=== PATIENT | male | born 1930 | race Caucasian/White ===

== ENCOUNTER 2016-04-16 07:48 | Day surgery (SDC) | payer OTHER, MEDICARE ==
[2016-04-15 13:13] VITALS: BMI 33.9
[2016-04-16] MEDS ORDERED: ETOMIDATE 20 MG/10 ML AMPUL IVPUSH ONE (09:02)
[2016-04-16] MEDS ORDERED: PROPOFOL 20 ML ONE ×3 (09:03→09:54)
[2016-04-16 10:18] VITALS: TEMP 98.2
[2016-04-16 11:12] VITALS: BP 149/64; PULSE 67
--- NOTE | 2016-04-19 12:36 | PATH ---
Surgical Pathology Report Patient Name: SVETLANA SOTELO [facility]. Rec. #: [id number] /Age/Gender: 1930 (Age: 86) / M Account: [id number] Location: [facility] Taken: 04/16/2016 Received: 04/16/2016 Reported: 04/19/2016 Physicians: Trinidad Hopper M.D. Specimen(s) Received BX DISTAL TRANSVERSE COLON POLYP Clinical History Occult bleeding, anemia, family history of colon cancer, colon screening GERD, gastritis, duodenitis, colon diverticula, colon polyp Final Diagnosis COLON, DISTAL TRANSVERSE, POLYP, BIOPSY: TUBULAR ADENOMA. Electronically Signed Marco Antonio Harrison M.D. Gross Description Received in formalin, labeled "biopsy distal transverse colon polyp" are 2 quiroz, irregular portions of soft tissue measuring 0.2 and 0.3 cm in greatest dimension. The specimens are submitted in toto in one cassette. 04/16/201604/16/2016
== END 2016-04-16 11:37 | disposition home or self-care (01) ==
LOC: JASU-ENDO 07:48
PROVIDERS: ATTEND Internal Medicine Gastroenterology
PROC: 0DJ08ZZ Inspection of Upper Intestinal Tract, Via Natural or Artificial Opening Endoscopic (ICD-10-PCS; 2016-04-16)
PROC: 0DBL8ZX Excision of Transverse Colon, Via Natural or Artificial Opening Endoscopic, Diagnostic (ICD-10-PCS; principal; 2016-04-16 09:00)
DX: Z12.11 Encounter for screening for malignant neoplasm of colon (principal); K92.1 Melena; D50.9 Iron deficiency anemia, unspecified; D12.3 Benign neoplasm of transverse colon; K57.30 Diverticulosis of large intestine without perforation or abscess without bleeding; K63.89 Other specified diseases of intestine; K21.9 Gastro-esophageal reflux disease without esophagitis; K44.9 Diaphragmatic hernia without obstruction or gangrene; K25.9 Gastric ulcer, unspecified as acute or chronic, without hemorrhage or perforation; K29.70 Gastritis, unspecified, without bleeding; K29.80 Duodenitis without bleeding
CPT/HCPCS: 36415; 87338; 88305-TC

== ENCOUNTER 2018-04-15 14:49 | Inpatient (IN) | payer OTHER, MEDICARE ==
--- NOTE | 2018-04-15 15:00 | PDOC ---
History of Present Illness - General Chief Complaint: Injury Stated Complaint: LEFT HIP PAIN Time Seen by Provider: 04/15/18 15:00 - History of Present Illness Initial Comments: 88 year old male with PH of CHF, Afib (on Coumadin, pacemaker in place), HTN, and BPH presenting with left leg pain with a non healing lesion for the past week. Patient states that the cut his leg on a plant pot while in [place] and bandaged it. He also admits that he has been slightly more SOB for the past week and he has had slightly worsening bilateral leg swelling as well. He recently returned from [place] one week prior and worsening bilateral leg swelling and was told by his PCP to increased his Lasix by one dose so he has been taking 60 mg instead of 40 mg. There seems to be have been some confusion by the patient. He has His tetanus is uptodate and he denies fevers, chills, spreading erythema, nausea, vomiting, or diarrhea. 04/15/18 15:09 Past History - Past Medical History Allergies/Adverse Reactions: Allergies Allergy/AdvReac Type Severity Reaction Status Date / Time No Known Allergies Allergy Verified 04/15/18 14:52 Home Medications: Ambulatory Orders Furosemide [Lasix] 20 mg PO Q2D 04/15/16 Furosemide [Lasix] 40 mg PO Q2D 04/15/16 Losartan Potassium [Cozaar] 100 mg PO DAILY 04/15/16 Metoprolol Succinate [Toprol Xl] 75 mg PO DAILY 04/15/16 Tamsulosin HCl [Flomax] 0.4 mg PO DAILY 04/15/16 Warfarin Sodium 2 mg PO ASDIR 04/15/16 Warfarin Sodium 3 mg PO ASDIR 04/15/16 Amlodipine Besylate 5 mg PO DAILY 04/15/18 Finasteride [Proscar] 5 mg PO DAILY 04/15/18 Nitrofurantoin Macrocrystal [Nitrofurantoin] 25 mg PO ASDIR 04/15/18 Anemia: No Asthma: No Cancer: Yes (FACIAL SKIN CA EXCISION) Cardiac Disorders: (A FIB, SICK SINUS SYNDROME) CVA: No COPD: No CHF: No Dementia: No Diabetes: No GI Disorders: Yes (DIVERTICULOSIS, H.PYLORI, GASTRITIS, HIATAL HERNIA WITH GERD) Disorders: No HTN: Yes Hypercholesterolemia: No Liver Disease: No Seizures: No Thyroid Disease: No - Surgical History Abdominal Surgery: No Appendectomy: Yes Cardiac Surgery: No Cholecystectomy: No Lung Surgery: No Neurologic Surgery: No Orthopedic Surgery: Yes (LEFT HIP REPLACEMENT, RIGHT WRIST PINNING) - Suicide/Smoking/Psychosocial Hx Smoking History: Never smoked Hx Alcohol Use: Yes (SOCIALLY) Drug/Substance Use Hx: No Substance Use Type: None Hx Substance Use Treatment: No Review of Systems - Review of Systems Constitutional: No: Chills, Diaphoresis, Fever HEENTM: No: Eye Pain, Blurred Vision, Tearing Respiratory: Yes: Shortness of Breath, SOB with Exertion. No: Cough, SOB at Rest, Wheezing, Productive cough Cardiac (ROS): Yes: Edema. No: Chest Pain, Irregular Heart Rate, Lightheadedness ABD/GI: No: Constipated, Diarrhea, Nausea, Vomiting : No: Burning, Dysuria, Discharge Integumentary: No: Bruising, Erythema Neurological: No: Numbness, Paresthesia, Pre-Existing Deficit Psychiatric: No: Anxiety, Depression Endocrine: No: Intolerance to Cold, Intolerance to Heat Hematologic/Lymphatic: Yes: Easy Bleeding. No: Anemia, Blood Clots *Physical Exam - Physical Exam General Appearance: Yes: Nourished, Appropriately Dressed. No: Apparent Distress HEENT: positive: EOMI, WINTER, Normal ENT Inspection, Normal Voice Neck: positive: Trachea midline, Normal Thyroid, Supple. negative: Tender, Rigid Respiratory/Chest: positive: Lungs Clear, Normal Breath Sounds. negative: Chest Tender, Respiratory Distress Cardiovascular: positive: Regular Rhythm, Regular Rate Gastrointestinal/Abdominal: positive: Normal Bowel Sounds, Flat, Soft. negative : Tender Lymphatic: negative: Adenopathy, Tenderness Musculoskeletal: negative: Normal Inspection (left lower extremity 3 cm clean superfical laceratin with overlying devitalized skin. Light serous drainage from the wound. 1 cm laceration oin the medial aspect of the left lower extremity as well without drainage.), Decreased Range of Motion Extremity: positive: Normal Capillary Refill, Swelling. negative: Normal Inspection (bilateral 3+ pitting edema) Integumentary: positive: Normal Color, Dry, Warm, Swelling Neurologic: positive: Fully Oriented, Alert, Normal Mood/Affect, Normal Response , Motor Strength 5/5 ED Treatment Course - LABORATORY CBC & Chemistry Diagram: 04/15/18 15:21 04/15/18 15:21 Medical Decision Making - Medical Decision Making 88 year old male on Coumadin and with CHF presenting with worsening SOB and non- healing left lower extremity wound. He hasn't had his INR checked in three weeks. His labs and exam were not concerning for infection but his PT/INR were seen as supratherapeutic. His CXR did not demonstrate overt fluid overload but he did have 3+ pitting edema bilateral despite increasing his Lasix. His BNP was elevated to 1600 a few days ago. Given his supratherapeutic INR and Acute heart failure we will admit him to telemetry for further dieresis (40 IV Lasix given here). Patient had 1350 mL of urine and subsequently signed out to admitting hospitalist. 04/15/18 17:51 *DC/Admit/Observation/Transfer Diagnosis at time of Disposition: Acute congestive heart failure Qualifiers: Heart failure type: unspecified Qualified Code(s): I50.9 - Heart failure, unspecified - Discharge Dispostion Condition at time of disposition: Stable Decision to Admit order: Yes - Referrals - Patient Instructions - Post Discharge Activity
[2018-04-15 15:27] LABS: BASO % 0.5 % (0-2.0); HEMATOCRIT 35.2 % (35.4-49); HEMOGLOBIN 11.7 GM/dl (11.7-16.9); LYMPH % 8.9 % (8-40); MCH 31.5 pg (25.7-33.7); MCHC 33.2 g/dl (32.0-35.9); MEAN CELL VOLUME 94.8 fl (80-96); MEAN PLT VOLUME 7.2 fl (7.5-11.1); MONO % 8.9 % (3.8-10.2); NEUT % 80.7 % (42.8-82.8); PLATELET COUNT 424 K/MM3 (134-434); RBC 3.72 M/mm3 (4.00-5.60); RDW 13.1 % (11.9-15.9); WHITE BLOOD COUNT 8.8 K/mm3 (4.0-10.8)
[2018-04-15 15:30] LABS: PROTHROMBIN TIME (PATIENT) 68.9 SEC (10.2-13.0)
[2018-04-15 15:34] LABS: INR 6.38 (0.82-1.09)
[2018-04-15 15:41] LABS: ALBUMIN 2.8 g/dl (3.4-5.0); ALK PHOS 67 U/L (45-117); ANION GAP 7 MMOL/L (8-16); BILIRUBIN,TOTAL 1.5 mg/dl (0.2-1); BLOOD UREA NITROGEN 19 mg/dl (7-18); CHLORIDE 102 mmol/L (98-107); CO2 26 mmol/L (21-32); CREATININE 1.2 mg/dl (0.55-1.3); GLUCOSE,RANDOM 98 mg/dl (74-106); POTASSIUM 4.1 mmol/L (3.5-5.1); SGOT/AST 22 U/L (15-37); SGPT/ALT 26 U/L (13-61); SODIUM 135 mmol/L (136-145); TOT PROT 5.8 g/dl (6.4-8.2)
[2018-04-15] MEDS ORDERED: FUROSEMIDE 40 MG/4 ML INJECTABLE VIAL IVPUSH ONE (16:02)
[2018-04-15] MEDS ORDERED: FUROSEMIDE 40 MG/4 ML INJECTABLE VIAL ONE (16:39)
--- NOTE | 2018-04-15 16:43 | PDOC ---
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 Pt with small abrasion to L anterior hunter from recent trip to [place]- serous drainage, no purulent drainage, no surrounding erythema. States he saw Dr. Wilson and was told to take extra lasix -he took 20mg extra x 2 days. States today - pain to L quad and L hip with ROM. b/l LE swelling. No calf cramping. States also barron and sob that has not improved with increased lasix dose. Pt denies cp. Pt laying flat on the stretcher, speaking in full sentences. - Physicial Exam PE: 04/15/18 16:41 Gen: aaox3, nad heart: +s1s2 reg, pacer L chest wall lungs: cta b/l abd:soft, nt/nd +bs ext: 4+pitting edema below the knee b/l, small wound/abrasion/skin tear to L anterior hunter with serous drainage drainage, no surrounding erythema, no warmth , no ttp, no purulent drainage, no crepitus - Medical Decision Making 04/15/18 16:38 I, Dr. Samantha Eckert, DO, attest that this document has been prepared under my direction and personally reviewed by me in its entirety. I further attest, that it accurately reflects all work, treatment, procedures and medical decision -making performed by me. 04/15/18 16:43 a/p: 88yo male with sob, barron, LE swelling -hx of heart failure -has been taking extra lasix at home without relief -will obtain duplex ultrasound -will obtain cxr, ekg -labs -will check INR -will monitor and reassess 04/15/18 16:44 pt with mild vascular congestion on cxr dvt study negative INR 6.8 - no bleeding, hold coumadin will give iv lasix pmd dr. wilson - microblog sent to [facility] for obs for heart failure 04/15/18 17:[address] Alejandra who accepts pt to service consult placed to cardiology - Dr. Wilson 04/15/18 17:24 trop negative Heart Score/ECG Review - ECG Intrepretation Comment:: 04/15/18 16:44 paced at 76
[2018-04-15] MEDS ORDERED: ACETAMINOPHEN INJECTION 100 ML IVPB ONE (17:32)
[2018-04-15] MEDS ORDERED: ACETAMINOPHEN 1000 MG/100 ML VIAL (NON FORMULARY) IVPB ONE (17:59)
[2018-04-15 19:00] VITALS: BMI 30.7
--- NOTE | 2018-04-15 20:05 | CONSULT ---
Consult Consult Specialty:: Cardiology (Dr. Noonan) Referred by:: Medicine Reason for Consultation:: CHF - History of Present Illness Chief Complaint: Edema History of Present Illness: 88 year old male Patient of Dr. Noonan CHF, Afib (on Coumadin, Biotronik pacemaker) HTN Now presenting with left leg pain with a non healing lesion for the past week after trauma to leg while in [place]. Was in [place] 2 weeks ago and developed food poisoning and since then he has declined from a functional capacity. Has noted increased edema and dyspnea with exertion. Upon his return he was instructed to double his dose of Lasix to 80mg daily but only took 60mg He has no prior CBAG/PCI or TN His dry weight is about 150# In ED: pt with mild vascular congestion on cxr LE dvt study negative INR 6.8 - no bleeding BNP >2000 Given iv lasix with UOP Admitted to Dr. Noonan for CHF - History Source History Provided By: Patient, Family Member Limitations to Obtaining History: No Limitations - Past Medical History Cardio/Vascular: Yes: HTN, Other (PPM) - Alcohol/Substance Use Hx Alcohol Use: Yes (SOCIALLY) - Smoking History Smoking history: Never smoked Have you smoked in the past 12 months: No Home Medications - Allergies Allergies/Adverse Reactions: Allergies Allergy/AdvReac Type Severity Reaction Status Date / Time No Known Allergies Allergy Verified 04/15/18 14:52 - Home Medications Home Medications: Ambulatory Orders Furosemide [Lasix] 40 mg PO DAILY 04/15/16 Losartan Potassium [Cozaar] 100 mg PO DAILY 04/15/16 Metoprolol Succinate [Toprol Xl] 75 mg PO DAILY 04/15/16 Tamsulosin HCl [Flomax] 0.4 mg PO DAILY 04/15/16 Warfarin Sodium 2 mg PO ASDIR 04/15/16 Warfarin Sodium 3 mg PO ASDIR 04/15/16 Amlodipine Besylate 5 mg PO HS 04/15/18 Finasteride [Proscar] 5 mg PO DAILY 04/15/18 Nitrofurantoin Macrocrystal [Nitrofurantoin] 25 mg PO ASDIR 04/15/18 Family Disease History - Family Disease History Family History: Unremarkable Review of Systems - Review of Systems Constitutional: reports: Other (Food poisoning 2 weels ago) Eyes: reports: No Symptoms HENT: reports: No Symptoms Neck: reports: No Symptoms Cardiovascular: reports: Edema, Shortness of Breath Respiratory: reports: SOB on Exertion Gastrointestinal: reports: Abdominal Pain, Diarrhea Genitourinary: reports: No Symptoms Integumentary: reports: Wound (Left leg) Neurological: reports: No Symptoms Physical Exam Vital Signs: Vital Signs Temperature 97.7 F 04/15/18 18:43 Pulse Rate 71 04/15/18 18:43 Respiratory Rate 20 04/15/18 18:43 Blood Pressure 132/57 L 04/15/18 18:43 O2 Sat by Pulse Oximetry (%) 96 04/15/18 17:58 Constitutional: Yes: Well Nourished, No Distress Eyes: Yes: WNL HENT: Yes: WNL Neck: Yes: WNL Cardiovascular: Yes: WNL, Regular Rate and Rhythm (Faint S1 and S2.) Respiratory: Yes: CTA Bilaterally Gastrointestinal: Yes: Normal Bowel Sounds Musculoskeletal: Yes: WNL Extremities: Yes: WNL Edema: Yes Edema: LLE: 2+, RLE: 2+ Labs: CBC, BMP 04/15/18 15:21 04/15/18 15:21 Imaging - Results Chest X-ray: Image Reviewed (midl PVC with PPM in left pectoral region) X-ray: Report Reviewed EKG: Image Reviewed (ECG done on 04/15/2018 at 16:36 showed Afib with V-pacing) Other: Report Reviewed (Echo 11/2016 Preserved LV size anf function RV dilation with mild PH Mod to severe MR Nuclear Stress: 11/2016 Persantine showing fixed apical defect. Preserved LV function.) Assessment/Plan 88 yo male with persistent AF on warfarin, and HTN now admitted with CHF in the setting of recent trip to [place] complicated by food poisoning. 1) CHF -Has normal JVP and clear lungs but with pitting LE edema -Elevated BNP (>2000) -Echo in 2017 with Diastolic dysfunction and preserved LVEF -No dietary indiscretions and takes his medications regularly -I suspect the recent food poisoning tipped him into CHF -Will increase lasix 40mg IV BID -Follow BUN/Creat -Will get echo tomorrow 2) Afib -Well rate controlled on metoprolol -On coumadin but with elevated INR 3) Elevated INR -Likely related to #1 -No active bleeding Will continue to hold coumadin 4) HTN -Well controlled on Losartan, metoprolol and Amlodipine
[2018-04-15] MEDS ORDERED: metoPROLOL SUCCINATE 25 MG TAB.SR.24H (FP) PO SCH (20:30)
[2018-04-15] MEDS ORDERED: amLODIPine BESYLATE 5 MG TABLET (FP) PO SCH (20:30)
--- NOTE | 2018-04-15 21:09 | HP ---
CHIEF COMPLAINT: SOB, LLE pain PCP: HISTORY OF PRESENT ILLNESS: This is a 88 y/o man with a past medical history of CHF, Afib (on Coumadin, pacemaker in place), HTN, BPH. Who presents to the ED with left leg pain with a non healing lesion for the past week. Patient states that he cut his leg on a plant pot while in [place] and bandaged it. He reports increased SOB for the past week and slightly worsening bilateral leg swelling. He recently returned from [place] one week ago, and with the worsening bilateral leg swelling and was told by his PCP to increase his Lasix by one dose so he has been taking 60 mg instead of 40 mg. Patient reports being UTD with tetanus. Patient denies fevers , chills, dizziness, ROJAS, CP, palpitations, AP, N/V/D, dysuria. Patient denies parasthesias to LLE, increased erythema or tracking. ER course was notable for: (1) Duplex of Lower Extremity- neg DVT (2) Chest Xray- no infiltrate or effusion (3) BNP > 2000 (4) INR 6.38 Recent Travel: [place] PAST MEDICAL HISTORY: See HPI PAST SURGICAL HISTORY: PPM Social History: Smoking: Never Alcohol: Occasional Drugs: None Retired Physician, Independent Family History: Father: 80's from an accident Mother: Feliz Lopez, age 89 Allergies No Known Allergies Allergy (Verified 04/15/18 14:52) HOME MEDICATIONS: Home Medications Medication Instructions Recorded Furosemide [Lasix] 20 mg PO Q2D 04/15/16 Furosemide [Lasix] 40 mg PO Q2D 04/15/16 Losartan Potassium [Cozaar] 100 mg PO DAILY 04/15/16 Metoprolol Succinate [Toprol Xl] 75 mg PO DAILY 04/15/16 Tamsulosin HCl [Flomax] 0.4 mg PO DAILY 04/15/16 Warfarin Sodium 2 mg PO ASDIR 04/15/16 Warfarin Sodium 3 mg PO ASDIR 04/15/16 Amlodipine Besylate 5 mg PO DAILY 04/15/18 Finasteride [Proscar] 5 mg PO DAILY 04/15/18 Nitrofurantoin Macrocrystal 25 mg PO ASDIR 04/15/18 [Nitrofurantoin] REVIEW OF SYSTEMS CONSTITUTIONAL: Absent: fever, chills, diaphoresis, generalized weakness, malaise, loss of appetite, weight change HEENT: Absent: rhinorrhea, nasal congestion, throat pain, throat swelling, difficulty swallowing, mouth swelling, ear pain, eye pain, visual changes CARDIOVASCULAR: peripheral edema Absent: chest pain, syncope, palpitations, irregular heart rate, lightheadedness RESPIRATORY: cough, shortness of breath, dyspnea with exertion Absent: orthopnea, wheezing, stridor, hemoptysis GASTROINTESTINAL: Absent: abdominal pain, abdominal distension, nausea, vomiting, diarrhea, constipation, melena, hematochezia GENITOURINARY: Absent: dysuria, frequency, urgency, hesitancy, hematuria, flank pain, genital pain MUSCULOSKELETAL: arthralgia Absent: myalgia, joint swelling, back pain, neck pain SKIN: scab to LLE Absent: rash, itching, pallor HEMATOLOGIC/IMMUNOLOGIC: Absent: easy bleeding, easy bruising, lymphadenopathy, frequent infections ENDOCRINE: Absent: unexplained weight gain, unexplained weight loss, heat intolerance, cold intolerance NEUROLOGIC: Absent: headache, focal weakness or paresthesias, dizziness, unsteady gait, seizure, mental status changes, bladder or bowel incontinence PSYCHIATRIC: Absent: anxiety, depression, suicidal or homicidal ideation, hallucinations. PHYSICAL EXAMINATION Vital Signs - 24 hr 04/15/18 04/15/18 04/15/18 14:51 17:58 18:43 Temperature 97.6 F 98.8 F 97.7 F Pulse Rate 68 71 Pulse Rate [ 80 Right] Respiratory 20 20 20 Rate Blood Pressure 142/64 132/57 L Blood Pressure 135/77 [Left Arm] O2 Sat by Pulse 100 96 Oximetry (%) 04/15/18 20:06 Temperature 97.8 F Pulse Rate 72 Pulse Rate [ Right] Respiratory 18 Rate Blood Pressure 147/65 Blood Pressure [Left Arm] O2 Sat by Pulse 97 Oximetry (%) GENERAL: Awake, alert, and fully oriented, in no acute distress. HEAD: Normal with no signs of trauma. EYES: Pupils equal, round and reactive to light, extraocular movements intact, sclera anicteric, conjunctiva clear. No lid lag. EARS, NOSE, THROAT: Ears normal, nares patent, oropharynx clear without exudates. Moist mucous membranes. NECK: Normal range of motion, supple without lymphadenopathy, JVD, or masses. LUNGS: Breath sounds equal, clear to auscultation bilaterally. No wheezes, and no crackles. No accessory muscle use. HEART: Irregular rate and rhythm, normal S1 and S2 without murmur, rub or gallop. ABDOMEN: Obese, soft, nontender, not distended, normoactive bowel sounds, no guarding, no rebound, no masses. No hepatomegaly or splenomegaly. MUSCULOSKELETAL: L-lateral hip/groin tenderness to palpation. Normal range of motion at all joints. No bony deformities. No CVA tenderness. UPPER EXTREMITIES: 2+ pulses, warm, well-perfused. No cyanosis. No clubbing. No peripheral edema. LOWER EXTREMITIES:+2 b/l pitting peripheral edema 2+ pulses, warm, well- perfused. No calf tenderness. NEUROLOGICAL: Cranial nerves II-XII intact. Normal speech. Gait not observed. PSYCHIATRIC: Cooperative. Good eye contact. Appropriate mood and affect. SKIN: + Eccyhmotic scab to anterior LLE, non fluctuant, no tracking noted. Warm , dry, normal turgor, no rashes. normal capillary refill. Laboratory Results - last 24 hr 04/15/18 04/15/18 04/15/18 15:21 15:21 15:21 WBC 8.8 RBC 3.72 L Hgb 11.7 Hct 35.2 L MCV 94.8 MCH 31.5 MCHC 33.2 RDW 13.1 Plt Count 424 D MPV 7.2 L Absolute Neuts (auto) 7.1 Neutrophils % 80.7 Lymphocytes % 8.9 Monocytes % 8.9 Eosinophils % 1.0 Basophils % 0.5 PT with INR 68.9 H INR 6.38 H* Sodium 135 L Potassium 4.1 Chloride 102 Carbon Dioxide 26 Anion Gap 7 L BUN 19 H Creatinine 1.2 Creat Clearance w eGFR 57.01 Random Glucose 98 Calcium 8.0 L Total Bilirubin 1.5 H AST 22 ALT 26 Alkaline Phosphatase 67 Creatine Kinase Troponin I B-Natriuretic Peptide Total Protein 5.8 L Albumin 2.8 L 04/15/18 04/15/18 04/15/18 16:50 16:50 16:50 WBC RBC Hgb Hct MCV MCH MCHC RDW Plt Count MPV Absolute Neuts (auto) Neutrophils % Lymphocytes % Monocytes % Eosinophils % Basophils % PT with INR INR Sodium Potassium Chloride Carbon Dioxide Anion Gap BUN Creatinine Creat Clearance w eGFR Random Glucose Calcium Total Bilirubin AST ALT Alkaline Phosphatase Creatine Kinase 128 Troponin I < 0.03 B-Natriuretic Peptide 2057.9 H Total Protein Albumin ASSESSMENT/PLAN: This is a 88 y/o man with a PMHx of CHF, A-Fib (on Coumadin), s/p PPM, HTN, BPH. Placed in Tele Observation for CHF Exacerbation, Supratherapuetic INR, L- Leg Pain for further evaluation of their emergent medical condition. Plan: See Problem List FEN Fluid Restriction 1L Replete lytes prn Low Na Diet DVT ppx OOB SCDs Hold AC secondary to Supratherapuetic INR Dispo: Observation Problem List - Problem (1) Acute exacerbation of CHF (congestive heart failure) Code(s): I50.9 - HEART FAILURE, UNSPECIFIED (2) Non-pressure ulcer of left lower extremity Assessment/Plan: stable Continue wound care Will hold off on ABX and defer to ID Appreciate ID consult Neurovascular checks Code(s): L97.929 - NON-PRS CHRONIC ULC UNSP PRT OF L LOW LEG W UNSP SEVERITY (3) Supratherapeutic international normalized ratio (INR) Assessment/Plan: Likely secondary to CHF Exacerbation stable no active bleeding Hold Coumadin until range 2.0-3.0 Series INRs Code(s): R79.1 - ABNORMAL COAGULATION PROFILE (4) A-fib Assessment/Plan: Stable [id number] Score 5 EKG- Ventricular Paced Continue BB Hold Coumadin secondary to Supratherapuetic INR Code(s): I48.91 - UNSPECIFIED ATRIAL FIBRILLATION (5) HTN (hypertension) Assessment/Plan: Stable Monitor BP Continue Norvasc, Toprol XL, Losartan Monitor renal function Low Na Diet Code(s): I10 - ESSENTIAL (PRIMARY) HYPERTENSION (6) BPH (benign prostatic hyperplasia) Assessment/Plan: Stable Continue Flomax, Proscar Monitor renal function Code(s): N40.0 - BENIGN PROSTATIC HYPERPLASIA WITHOUT LOWER URINRY TRACT SYMP Visit type - Emergency Visit Emergency Visit: Yes ED Registration Date: 04/15/18 Care time: The patient presented to the Emergency Department on the above date and was hospitalized for further evaluation of their emergent condition. - New Patient This patient is new to me today: Yes Date on this admission: 04/15/18 - Critical Care Critical Care patient: No
[2018-04-15] MEDS ORDERED: traMADol HCL 50 MG TABLET PO PRN (23:40)
[2018-04-15] MEDS: ACETAMINOPHEN 325 MG TABLET (FP) PO PRN (23:55)
[2018-04-16] MEDS ORDERED: oxyCODONE HCL 5 MG TABLET PO ONE (04:00)
[2018-04-16] MEDS: TAMSULOSIN HCL 0.4 MG CAP PO SCH ×2 (05:45→17:47)
[2018-04-16 09:13] LABS: PROTHROMBIN TIME (PATIENT) 55.5 SEC (10.2-13.0)
[2018-04-16 09:16] LABS: INR 5.12 (0.82-1.09)
[2018-04-16 09:19] LABS: BASO % 0.7 % (0-2.0); EOS % 1.8 % (0-4.5); HEMATOCRIT 33.2 % (35.4-49); HEMOGLOBIN 10.9 GM/dl (11.7-16.9); LYMPH % 11.4 % (8-40); MCH 31.4 pg (25.7-33.7); MEAN CELL VOLUME 95.3 fl (80-96); MEAN PLT VOLUME 8.5 fl (7.5-11.1); NEUT % 76.1 % (42.8-82.8); PLATELET COUNT 395 K/MM3 (134-434); RBC 3.48 M/mm3 (4.00-5.60); RDW 13.2 % (11.9-15.9); WHITE BLOOD COUNT 8.1 K/mm3 (4.0-10.8)
[2018-04-16 09:22] LABS: ANION GAP 10 MMOL/L (8-16); BLOOD UREA NITROGEN 16 mg/dl (7-18); CHLORIDE 102 mmol/L (98-107); CO2 27 mmol/L (21-32); GLUCOSE,RANDOM 86 mg/dl (74-106); MAGNESIUM 1.8 mg/dL (1.8-2.4); PHOSPHOROUS 3.1 mg/dl (2.5-4.9); POTASSIUM 3.9 mmol/L (3.5-5.1); SODIUM 139 mmol/L (136-145)
[2018-04-16] MEDS ORDERED: FUROSEMIDE 40 MG/4 ML INJECTABLE VIAL IVPUSH SCH (10:00)
[2018-04-16] MEDS: LOSARTAN POTASSIUM 50 MG TABLET (FP) PO SCH (10:09)
[2018-04-16] MEDS: FINASTERIDE 5 MG TABLET (FP) PO SCH (10:09)
--- NOTE | 2018-04-16 10:10 | PN ---
Physical Exam: SUBJECTIVE: Patient seen and examined, sitting in chair. pt reports decreased swelling in legs. +ORTEGA. Left lower leg wound pt reports he cut his leg on a garden rail, while in [place]. OBJECTIVE: Vital Signs Period Temp Pulse Resp BP Sys/Meyer Pulse Ox Last 24 Hr 97.6 F-98.8 F 68-80 17-20 122-147/53-77 95-100 GENERAL: The patient is awake, alert, and fully oriented, in no acute distress. HEAD: Normal with no signs of trauma. EYES: PERRL, extraocular movements intact, sclera anicteric, conjunctiva clear. No ptosis. ENT: Ears normal, nares patent, oropharynx clear without exudates, moist mucous membranes. NECK: Trachea midline, full range of motion, supple. LUNGS: Breath sounds equal, clear to auscultation bilaterally, no wheezes, no crackles, no accessory muscle use. HEART: Regular rate and rhythm, S1, S2 without murmur, rub or gallop. ABDOMEN: Soft, nontender, nondistended, normoactive bowel sounds, no guarding, no rebound, no hepatosplenomegaly, no masses. EXTREMITIES: 2+ pulses, warm, well-perfused, no edema. NEUROLOGICAL: Cranial nerves II through XII grossly intact. Normal speech, gait not observed. PSYCH: Normal mood, normal affect. SKIN: Warm, dry, normal turgor, no rashes or lesions noted Laboratory Results - last 24 hr 04/15/18 04/15/18 04/15/18 15:21 15:21 15:21 WBC 8.8 RBC 3.72 L Hgb 11.7 Hct 35.2 L MCV 94.8 MCH 31.5 MCHC 33.2 RDW 13.1 Plt Count 424 D MPV 7.2 L Absolute Neuts (auto) 7.1 Neutrophils % 80.7 Lymphocytes % 8.9 Monocytes % 8.9 Eosinophils % 1.0 Basophils % 0.5 PT with INR 68.9 H INR 6.38 H* Sodium 135 L Potassium 4.1 Chloride 102 Carbon Dioxide 26 Anion Gap 7 L BUN 19 H Creatinine 1.2 Creat Clearance w eGFR 57.01 Random Glucose 98 Calcium 8.0 L Phosphorus Magnesium Total Bilirubin 1.5 H AST 22 ALT 26 Alkaline Phosphatase 67 Creatine Kinase Troponin I B-Natriuretic Peptide Total Protein 5.8 L Albumin 2.8 L 03/02/19 03/02/19 03/02/19 16:50 16:50 16:50 WBC RBC Hgb Hct MCV MCH MCHC RDW Plt Count MPV Absolute Neuts (auto) Neutrophils % Lymphocytes % Monocytes % Eosinophils % Basophils % PT with INR INR Sodium Potassium Chloride Carbon Dioxide Anion Gap BUN Creatinine Creat Clearance w eGFR Random Glucose Calcium Phosphorus Magnesium Total Bilirubin AST ALT Alkaline Phosphatase Creatine Kinase 128 Troponin I < 0.03 B-Natriuretic Peptide 2057.9 H Total Protein Albumin 04/15/18 04/16/18 04/16/18 23:20 08:00 08:00 WBC 8.1 RBC 3.48 L Hgb 10.9 L Hct 33.2 L MCV 95.3 MCH 31.4 MCHC 33.0 RDW 13.2 Plt Count 395 MPV 8.5 D Absolute Neuts (auto) 6.2 Neutrophils % 76.1 Lymphocytes % 11.4 D Monocytes % 10.0 Eosinophils % 1.8 Basophils % 0.7 PT with INR 55.5 H INR 5.12 H* Sodium Potassium Chloride Carbon Dioxide Anion Gap BUN Creatinine Creat Clearance w eGFR Random Glucose Calcium Phosphorus Magnesium Total Bilirubin AST ALT Alkaline Phosphatase Creatine Kinase Troponin I < 0.03 B-Natriuretic Peptide Total Protein Albumin 04/16/18 08:00 WBC RBC Hgb Hct MCV MCH MCHC RDW Plt Count MPV Absolute Neuts (auto) Neutrophils % Lymphocytes % Monocytes % Eosinophils % Basophils % PT with INR INR Sodium 139 Potassium 3.9 Chloride 102 Carbon Dioxide 27 Anion Gap 10 BUN 16 Creatinine 1.0 Creat Clearance w eGFR > 60 Random Glucose 86 Calcium 8.0 L Phosphorus 3.1 Magnesium 1.8 Total Bilirubin AST ALT Alkaline Phosphatase Creatine Kinase Troponin I Cancelled B-Natriuretic Peptide Total Protein Albumin Active Medications Generic Name Dose Route Start Last Admin Trade Name Freq PRN Reason Stop Dose Admin Acetaminophen 650 mg 04/15/18 23:40 04/15/18 23:55 Tylenol - PO 650 mg Q6H PRN Administration PAIN LEVEL 1-5 Amlodipine Besylate 5 mg 04/16/18 18:00 Norvasc - PO DAILY@1800 [facility] Finasteride 5 mg 04/16/18 10:00 Proscar - PO DAILY [facility] Furosemide 40 mg 04/16/18 10:00 Lasix Injection - IVPUSH DAILY [facility] Losartan Potassium 100 mg 04/16/18 10:00 Cozaar - PO DAILY [facility] Metoprolol Succinate 75 mg 04/16/18 18:00 Toprol Xl - PO DAILY@1800 [facility] Tamsulosin HCl 0.4 mg 04/15/18 18:00 04/16/18 05:45 Flomax - PO Not Given DAILY@1800 [facility] Tramadol HCl 50 mg 04/15/18 23:40 Ultram - PO Q8H PRN PAIN LEVEL 6-10 ASSESSMENT/PLAN: Simone Koo is a 88 year old male with PH of CHF, Afib (on Coumadin, pacemaker in place), HTN, and BPH presenting with left leg pain with a non healing lesion for the past week. admitted for Admitting Diagnosis Acute on Chronic CHF Chronic Problems Afib, chronic, PPM HTN BPH A/P: #Acute on chronic CHF -Oxygen PRN -Lasix 40 mg daily -Echo ordered -Cardio consult -Daily weights, I/O #Left LE wound -local wound care -wound cx pending -ID consult -afebrile #HTN #Afib, chronic, PPM -on BB, Norvasc -coumadin on hold, supratherapuetic 5.12 #BPH -on proscar -pt self catheterizes Physical Therapy Dispo: requires inpatient treatment. Visit type - Emergency Visit Emergency Visit: Yes ED Registration Date: 04/15/18 Care time: The patient presented to the Emergency Department on the above date and was hospitalized for further evaluation of their emergent condition. - New Patient This patient is new to me today: Yes Date on this admission: 04/16/18 - Critical Care Critical Care patient: No
[2018-04-16] MEDS: ACETAMINOPHEN 325 MG TABLET (FP) PO PRN (11:15)
--- NOTE | 2018-04-16 11:39 | CON.ID ---
Consult - History of Present Illness History of Present Illness: 88 y.o. male retired [employer] with PMH of CHF, PPM, AFIB, HTN and BPH b/l hip replacements, presents with c/o b/l LE swelling and Lt leg pain s/p fall as well as a scrape on LLE against a wooden garden rail. Pt states that injury was 5 days ago during which time he was in [place] and has not been healing despite using neosporin. He denies deep puncture at the site and has received a tetanus booster 5 yrs ago. No noted tenderness, erythema, warmth or edema over the site but has been having small amount of serous drainage. His last tetanus Also states he developed diarrhea during his trip and took 5 days of cipro with resolution of symptoms. He denies fever or chills. His leg swelling did not improve after increasing the dosage lasix he normally takes. He currently denies SOB, CP, Abd pain/n/v/d, dysuria. Has upper Lt leg pain since his fall. - History Source History Provided By: Patient Limitations to Obtaining History: No Limitations - Past Medical History Cardio/Vascular: Yes: CHF, HTN Renal/: Yes: BPH - Past Surgical History Past Surgical History: Yes: Permanent Pacemaker - Alcohol/Substance Use Hx Alcohol Use: Yes (SOCIALLY) - Smoking History Smoking history: Never smoked Have you smoked in the past 12 months: No Home Medications - Allergies Allergies/Adverse Reactions: Allergies Allergy/AdvReac Type Severity Reaction Status Date / Time No Known Allergies Allergy Verified 04/15/18 14:52 - Home Medications Home Medications: Ambulatory Orders Furosemide [Lasix] 40 mg PO DAILY 04/15/16 Losartan Potassium [Cozaar] 100 mg PO DAILY 04/15/16 Metoprolol Succinate [Toprol Xl] 75 mg PO DAILY 04/15/16 Tamsulosin HCl [Flomax] 0.4 mg PO DAILY 04/15/16 Warfarin Sodium 2 mg PO ASDIR 04/15/16 Warfarin Sodium 3 mg PO ASDIR 04/15/16 Amlodipine Besylate 5 mg PO HS 04/15/18 Finasteride [Proscar] 5 mg PO DAILY 04/15/18 Nitrofurantoin Macrocrystal [Nitrofurantoin] 25 mg PO ASDIR 04/15/18 Review of Systems - Review of Systems Constitutional: reports: No Symptoms Eyes: reports: No Symptoms HENT: reports: No Symptoms Neck: reports: No Symptoms Cardiovascular: reports: No Symptoms Respiratory: reports: SOB on Exertion Gastrointestinal: reports: No Symptoms Genitourinary: reports: No Symptoms Musculoskeletal: reports: Other (Lt leg pain with decreased ROM due to pain but able to walk) Integumentary: reports: Wound (LLE wound with slightly darkened discoloration and mild serous drainage. No erythema/warmth/tenderness/induration) Neurological: reports: No Symptoms Endocrine: reports: No Symptoms Hematology/Lymphatic: reports: No Symptoms Psychiatric: reports: No Symptoms Physical Exam Vital Signs: Vital Signs Temperature 98.6 F 04/16/18 10:00 Pulse Rate 74 04/16/18 10:00 Respiratory Rate 18 04/16/18 10:00 Blood Pressure 122/63 04/16/18 10:00 O2 Sat by Pulse Oximetry (%) 95 04/16/18 10:00 Constitutional: Yes: No Distress, Calm Eyes: Yes: Conjunctiva Clear HENT: Yes: Atraumatic Neck: Yes: Supple Cardiovascular: Yes: Regular Rate and Rhythm, Other (PPM) Gastrointestinal: Yes: Normal Bowel Sounds, Soft Renal/: Yes: WNL Musculoskeletal: Yes: Other (upper LLE pain) Edema: Yes Wound/Incision: Yes: Other (LLE wound with mild serous drainage, no erythema/ tenderness/warmth or purulence) Neurological: Yes: Alert Labs: CBC, BMP 04/16/18 08:00 04/16/18 08:00 Laboratory Tests 04/15/18 04/15/18 04/15/18 15:21 15:21 15:21 WBC 8.8 RBC 3.72 L Hgb 11.7 Hct 35.2 L MCV 94.8 MCH 31.5 MCHC 33.2 RDW 13.1 Plt Count 424 D MPV 7.2 L Absolute Neuts (auto) 7.1 Neutrophils % 80.7 Lymphocytes % 8.9 Monocytes % 8.9 Eosinophils % 1.0 Basophils % 0.5 PT with INR 68.9 H INR 6.38 H* Sodium 135 L Potassium 4.1 Chloride 102 Carbon Dioxide 26 Anion Gap 7 L BUN 19 H Creatinine 1.2 Creat Clearance w eGFR 57.01 Random Glucose 98 Calcium 8.0 L Phosphorus Magnesium Total Bilirubin 1.5 H AST 22 ALT 26 Alkaline Phosphatase 67 Creatine Kinase Troponin I B-Natriuretic Peptide Total Protein 5.8 L Albumin 2.8 L 04/15/18 04/15/18 04/15/18 16:50 16:50 16:50 WBC RBC Hgb Hct MCV MCH MCHC RDW Plt Count MPV Absolute Neuts (auto) Neutrophils % Lymphocytes % Monocytes % Eosinophils % Basophils % PT with INR INR Sodium Potassium Chloride Carbon Dioxide Anion Gap BUN Creatinine Creat Clearance w eGFR Random Glucose Calcium Phosphorus Magnesium Total Bilirubin AST ALT Alkaline Phosphatase Creatine Kinase 128 Troponin I < 0.03 B-Natriuretic Peptide 2057.9 H Total Protein Albumin 04/15/18 04/16/18 04/16/18 23:20 08:00 08:00 WBC 8.1 RBC 3.48 L Hgb 10.9 L Hct 33.2 L MCV 95.3 MCH 31.4 MCHC 33.0 RDW 13.2 Plt Count 395 MPV 8.5 D Absolute Neuts (auto) 6.2 Neutrophils % 76.1 Lymphocytes % 11.4 D Monocytes % 10.0 Eosinophils % 1.8 Basophils % 0.7 PT with INR 55.5 H INR 5.12 H* Sodium Potassium Chloride Carbon Dioxide Anion Gap BUN Creatinine Creat Clearance w eGFR Random Glucose Calcium Phosphorus Magnesium Total Bilirubin AST ALT Alkaline Phosphatase Creatine Kinase Troponin I < 0.03 B-Natriuretic Peptide Total Protein Albumin 04/16/18 08:00 WBC RBC Hgb Hct MCV MCH MCHC RDW Plt Count MPV Absolute Neuts (auto) Neutrophils % Lymphocytes % Monocytes % Eosinophils % Basophils % PT with INR INR Sodium 139 Potassium 3.9 Chloride 102 Carbon Dioxide 27 Anion Gap 10 BUN 16 Creatinine 1.0 Creat Clearance w eGFR > 60 Random Glucose 86 Calcium 8.0 L Phosphorus 3.1 Magnesium 1.8 Total Bilirubin AST ALT Alkaline Phosphatase Creatine Kinase Troponin I Cancelled B-Natriuretic Peptide Total Protein Albumin Imaging - Results Chest X-ray: Report Reviewed X-ray: Report Reviewed Problem List - Problems (1) A-fib Code(s): I48.91 - UNSPECIFIED ATRIAL FIBRILLATION (2) Acute exacerbation of CHF (congestive heart failure) Code(s): I50.9 - HEART FAILURE, UNSPECIFIED (3) BPH (benign prostatic hyperplasia) Code(s): N40.0 - BENIGN PROSTATIC HYPERPLASIA WITHOUT LOWER URINRY TRACT SYMP (4) HTN (hypertension) Code(s): I10 - ESSENTIAL (PRIMARY) HYPERTENSION (5) Non-pressure ulcer of left lower extremity Code(s): L97.929 - NON-PRS CHRONIC ULC UNSP PRT OF L LOW LEG W UNSP SEVERITY Assessment/Plan LLE wound s/p scrape Acute CHF exacerbation -- no obvious signs of infection at this time, will hold off antibiotics -- continue wound care and monitor as LE edema improves
[2018-04-16 14:03] LABS: URINE APPEARANCE HAZY; URINE BILIRUBIN Negative (NEGATIVE); URINE COLOR Yellow; URINE GLUCOSE (UA) Negative (NEGATIVE); URINE KETONE Negative (NEGATIVE); URINE LEUK ESTERASE TRACE (NEGATIVE); URINE NITRITE Negative (NEGATIVE); URINE PROTEIN Negative (NEGATIVE); URINE UROBILINOGEN 0.2 (0.2-1.0)
[2018-04-16 14:12] LABS: EPI CELLS FEW /HPF; URINE RBC 0-2 /hpf (0-3)
[2018-04-16] MEDS: LIDOCAINE 5% TOPICAL PATCH TP SCH (14:19)
[2018-04-16] MEDS: POLYETHYLENE GLYCOL 3350 119 GM BTL PO SCH (14:20)
[2018-04-16] MEDS: amLODIPine BESYLATE 5 MG TABLET (FP) PO SCH (17:53)
[2018-04-16] MEDS: metoPROLOL SUCCINATE 25 MG TAB.SR.24H (FP) PO SCH (17:54)
[2018-04-16] MEDS: FUROSEMIDE 40 MG/4 ML INJECTABLE VIAL IVPUSH SCH (18:37)
[2018-04-16] MEDS: DOCUSATE SODIUM 100 MG CAPSULE (FP) PO SCH (21:40)
[2018-04-16] MEDS ORDERED: ACETAMINOPHEN 1000 MG/100 ML VIAL (NON FORMULARY) IVPB ONE (21:59)
[2018-04-16] MEDS ORDERED: LIDOCAINE PATCH REMOVAL MC SCH (22:00)
[2018-04-17] MEDS: FUROSEMIDE 40 MG/4 ML INJECTABLE VIAL IVPUSH SCH ×2 (06:41→13:02)
[2018-04-17] MEDS: DOCUSATE SODIUM 100 MG CAPSULE (FP) PO SCH ×3 (06:41→21:40)
[2018-04-17 08:26] LABS: BASO % 0.5 % (0-2.0); EOS % 1.5 % (0-4.5); HEMATOCRIT 33.6 % (35.4-49); HEMOGLOBIN 10.9 GM/dl (11.7-16.9); LYMPH % 13.5 % (8-40); MCH 30.9 pg (25.7-33.7); MCHC 32.4 g/dl (32.0-35.9); MEAN CELL VOLUME 95.5 fl (80-96); MONO % 10.5 % (3.8-10.2); PLATELET COUNT 431 K/MM3 (134-434); RBC 3.52 M/mm3 (4.00-5.60); RDW 13.2 % (11.9-15.9); WHITE BLOOD COUNT 7.5 K/mm3 (4.0-10.8)
[2018-04-17 08:29] LABS: INR 3.95 (0.82-1.09); PROTHROMBIN TIME (PATIENT) 43.1 SEC (10.2-13.0)
[2018-04-17 08:38] LABS: ALBUMIN 2.7 g/dl (3.4-5.0); ALK PHOS 66 U/L (45-117); ANION GAP 10 MMOL/L (8-16); BILIRUBIN,TOTAL 1.6 mg/dl (0.2-1); BLOOD UREA NITROGEN 16 mg/dl (7-18); CHLORIDE 99 mmol/L (98-107); CO2 29 mmol/L (21-32); CREATININE 1.1 mg/dl (0.55-1.3); GLUCOSE,RANDOM 106 mg/dl (74-106); POTASSIUM 3.6 mmol/L (3.5-5.1); SGOT/AST 25 U/L (15-37); SGPT/ALT 22 U/L (13-61); SODIUM 138 mmol/L (136-145); TOT PROT 5.4 g/dl (6.4-8.2)
--- NOTE | 2018-04-17 08:51 | PN ---
Physical Exam: SUBJECTIVE: Patient seen and examined oob to chair. Two weeks ago lost his balance and suffered LLE laceration/avulsion injury. About four days after that event, developed left hip and quad pain which has persisted. Feels swelling in legs has improved significantly since admission with diuresis. OBJECTIVE: Vital Signs Period Temp Pulse Resp BP Sys/Meyer Pulse Ox Last 24 Hr 97.7 F-99.2 F 60-79 18-19 110-150/46-63 94-99 GENERAL: The patient is awake, alert, and fully oriented, in no acute distress. LUNGS: Breath sounds equal, clear to auscultation bilaterally, no wheezes, no crackles, no accessory muscle use. HEART: Regular rate and rhythm, S1, S2 ABDOMEN: Soft, nontender, nondistended, normoactive bowel sounds LOWER EXTREMITIES: 2+ pulses, warm, well-perfused, no edema. Avulsion injury to LLE. Necrotic skin flap. No erythema, fluctuance, or warmth. NEUROLOGICAL: Cranial nerves II through XII grossly intact. Normal speech, gait not observed. PSYCH: Normal mood, normal affect. SKIN: Warm, dry, normal turgor Laboratory Results - last 24 hr 04/16/18 04/16/18 04/16/18 08:00 08:00 08:00 WBC 8.1 RBC 3.48 L Hgb 10.9 L Hct 33.2 L MCV 95.3 MCH 31.4 MCHC 33.0 RDW 13.2 Plt Count 395 MPV 8.5 D Absolute Neuts (auto) 6.2 Neutrophils % 76.1 Lymphocytes % 11.4 D Monocytes % 10.0 Eosinophils % 1.8 Basophils % 0.7 PT with INR 55.5 H INR 5.12 H* Sodium 139 Potassium 3.9 Chloride 102 Carbon Dioxide 27 Anion Gap 10 BUN 16 Creatinine 1.0 Creat Clearance w eGFR > 60 Random Glucose 86 Calcium 8.0 L Phosphorus 3.1 Magnesium 1.8 Total Bilirubin AST ALT Alkaline Phosphatase Troponin I Cancelled Total Protein Albumin Urine Color Urine Appearance Urine pH Ur Specific [place] Urine Protein Urine Glucose (UA) Urine Ketones Urine Blood Urine Nitrite Urine Bilirubin Urine Urobilinogen Ur Leukocyte Esterase Urine RBC Urine WBC Ur Epithelial Cells 04/16/18 04/16/18 04/17/18 08:00 13:37 07:00 WBC 7.5 RBC 3.52 L Hgb 10.9 L Hct 33.6 L MCV 95.5 MCH 30.9 MCHC 32.4 RDW 13.2 Plt Count 431 MPV 8.0 Absolute Neuts (auto) 5.6 Neutrophils % 74.0 Lymphocytes % 13.5 Monocytes % 10.5 H Eosinophils % 1.5 Basophils % 0.5 PT with INR INR Sodium Potassium Chloride Carbon Dioxide Anion Gap BUN Creatinine Creat Clearance w eGFR Random Glucose Calcium Phosphorus Magnesium Total Bilirubin AST ALT Alkaline Phosphatase Troponin I < 0.03 Total Protein Albumin Urine Color Yellow Urine Appearance Hazy Urine pH 7.0 Ur Specific [place] 1.015 Urine Protein Negative Urine Glucose (UA) Negative Urine Ketones Negative Urine Blood Negative Urine Nitrite Negative Urine Bilirubin Negative Urine Urobilinogen 0.2 Ur Leukocyte Esterase Trace H Urine RBC 0-2 Urine WBC 2-5 Ur Epithelial Cells Few 04/17/18 04/17/18 07:00 07:00 WBC RBC Hgb Hct MCV MCH MCHC RDW Plt Count MPV Absolute Neuts (auto) Neutrophils % Lymphocytes % Monocytes % Eosinophils % Basophils % PT with INR 43.1 H INR 3.95 H Sodium 138 Potassium 3.6 Chloride 99 Carbon Dioxide 29 Anion Gap 10 BUN 16 Creatinine 1.1 Creat Clearance w eGFR > 60 Random Glucose 106 Calcium 8.0 L Phosphorus Magnesium Total Bilirubin 1.6 H AST 25 ALT 22 Alkaline Phosphatase 66 Troponin I Total Protein 5.4 L Albumin 2.7 L Urine Color Urine Appearance Urine pH Ur Specific [place] Urine Protein Urine Glucose (UA) Urine Ketones Urine Blood Urine Nitrite Urine Bilirubin Urine Urobilinogen Ur Leukocyte Esterase Urine RBC Urine WBC Ur Epithelial Cells Active Medications Generic Name Dose Route Start Last Admin Trade Name Meet PRN Reason Stop Dose Admin Acetaminophen 650 mg 04/15/18 23:40 04/16/18 11:15 Tylenol - PO 650 mg Q6H PRN Administration PAIN LEVEL 1-5 Amlodipine Besylate 5 mg 04/16/18 18:00 04/16/18 17:53 Norvasc - PO Not Given DAILY@1800 [facility] Docusate Sodium 100 mg 04/16/18 22:00 04/17/18 06:41 Colace - PO 100 mg TID SH[facility]ON Administration Finasteride 5 mg 04/16/18 10:00 04/16/18 10:09 Proscar - PO 5 mg DAILY [facility]ON Administration Furosemide 40 mg 04/16/18 18:30 04/17/18 06:41 Lasix Injection - IVPUSH 40 mg BID@0600,1400 [facility] Administration Lidocaine 1 patch 04/16/18 14:00 04/16/18 14:19 Lidoderm Patch - TP 1 patch DAILY [facility] Administration Losartan Potassium 100 mg 04/16/18 10:00 04/16/18 10:09 Cozaar - PO 100 mg DAILY [facility] Administration Metoprolol Succinate 75 mg 04/16/18 18:00 04/16/18 17:54 Toprol Xl - PO Not Given DAILY@1800 [facility] Miscellaneous 1 each 04/16/18 22:00 04/16/18 21:40 Lidoderm Patch Removal MC 1 each DAILY@2200 [facility] Administration Polyethylene Glycol 17 gm 04/16/18 14:00 04/16/18 14:20 Miralax (For Daily Use) - PO 17 gm DAILY [facility]ON Administration Tamsulosin HCl 0.4 mg 04/15/18 18:00 04/16/18 17:47 Flomax - PO 0.4 mg DAILY@1800 [facility] Administration Tramadol HCl 50 mg 04/15/18 23:40 Ultram - PO Q8H PRN PAIN LEVEL 6-10 ASSESSMENT/PLAN 88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 Admitted for CHF exacerbation, LLE wound, and left hip pain. Acute on chronic diastolic heart failure --3/ Echo: LV normal EF 60-65%; RV normal, PPM in RV; LAE; trace MR; trace AI --admitted with 3+ pitting edema, much improved after diuresis, down 3.2kg --continue lasix IV 40mg BID --cardiology following Left hip pain s/p left hip replacement (2001, HSS) --ortho Dr. Denney consulted, ordered new xray series --IV Tylenol, ultram PRN Atrial fibrillation --INR 6.38 on admission-->3.95 --continue to hold warfarin --rate is controlled on Toprol XL Hypertension --continue Toprol XL, losartan, amlodipine BPH --continue tamsulosin, finasteride PPM --Biotronik --Eluna 8 SR-T ProMRI 02/04/15 [id number] --Setrox S 60 [id number] 02/04/15 FEN Fluids: PO intake adequate Electrolytes: replete as indicated Nutrition: low sodium DVT prophylaxis: INR supratherapeutic, resume when between 2-3 Physical therapy Dispo: continues to require inpatient care. Full code. Dr. Wilson Visit type - Emergency Visit Emergency Visit: Yes ED Registration Date: 04/16/18 Care time: The patient presented to the Emergency Department on the above date and was hospitalized for further evaluation of their emergent condition. - New Patient This patient is new to me today: Yes Date on this admission: 04/18/18 - Critical Care Critical Care patient: No
[2018-04-17] MEDS: LOSARTAN POTASSIUM 50 MG TABLET (FP) PO SCH (09:47)
[2018-04-17] MEDS: LIDOCAINE 5% TOPICAL PATCH TP SCH (09:47)
[2018-04-17] MEDS: FINASTERIDE 5 MG TABLET (FP) PO SCH (09:47)
[2018-04-17] MEDS: POLYETHYLENE GLYCOL 3350 119 GM BTL PO SCH (09:48)
--- NOTE | 2018-04-17 09:50 | PN ---
Progress Note, Physician Chief Complaint: leg swelling, sob History of Present Illness: swelling much better walked halls today no sob still very difficult for him to walk due to pain in L hip region no palpitations, cp no cigs - Current Medication List Current Medications: Active Medications Acetaminophen (Tylenol -) 650 mg PO Q6H PRN PRN Reason: PAIN LEVEL 1-5 Last Admin: 04/16/18 11:15 Dose: 650 mg Amlodipine Besylate (Norvasc -) 5 mg PO DAILY@1800 [facility] Last Admin: 04/16/18 17:53 Dose: Not Given Docusate Sodium (Colace -) 100 mg PO TID [facility] Last Admin: 04/17/18 06:41 Dose: 100 mg Finasteride (Proscar -) 5 mg PO DAILY [facility] Last Admin: 04/16/18 10:09 Dose: 5 mg Furosemide (Lasix Injection -) 40 mg IVPUSH BID@0600,1400 [facility] Last Admin: 04/17/18 06:41 Dose: 40 mg Lidocaine (Lidoderm Patch -) 1 patch TP DAILY [facility] Last Admin: 04/16/18 14:19 Dose: 1 patch Losartan Potassium (Cozaar -) 100 mg PO DAILY [facility] Last Admin: 04/16/18 10:09 Dose: 100 mg Metoprolol Succinate (Toprol Xl -) 75 mg PO DAILY@1800 [facility] Last Admin: 04/16/18 17:54 Dose: Not Given Miscellaneous (Lidoderm Patch Removal) 1 each MC DAILY@2200 [facility] Last Admin: 04/16/18 21:40 Dose: 1 each Polyethylene Glycol (Miralax (For Daily Use) -) 17 gm PO DAILY [facility] Last Admin: 04/16/18 14:20 Dose: 17 gm Tamsulosin HCl (Flomax -) 0.4 mg PO DAILY@1800 [facility] Last Admin: 04/16/18 17:47 Dose: 0.4 mg Tramadol HCl (Ultram -) 50 mg PO Q8H PRN PRN Reason: PAIN LEVEL 6-10 - Objective Vital Signs: Vital Signs Temperature 97.7 F 04/17/18 06:33 Pulse Rate 78 04/17/18 06:33 Respiratory Rate 18 04/17/18 06:33 Blood Pressure 150/56 L 04/17/18 06:33 O2 Sat by Pulse Oximetry (%) 94 L 04/17/18 04:00 Constitutional: Yes: No Distress, Calm Eyes: No: Sclera Icterus HENT: No: Nasal Congestion Cardiovascular: Yes: Pulse Irregular, S1, S2, Other (PMI non diplaced). No: JVD , Gallop, Murmur Respiratory: Yes: CTA Bilaterally. No: Accessory Muscle Use, Rales, Wheezes Gastrointestinal: Yes: Normal Bowel Sounds, Soft. No: Tenderness Musculoskeletal: Yes: Other (No kyphosis) Extremities: No: Cold Edema: Yes (1+ pretib) Integumentary: No: Jaundice Neurological: Yes: Alert, Oriented (x3) Psychiatric: No: Agitated Labs: CBC, BMP 04/17/18 07:00 04/17/18 07:00 INR, PTT INR 3.95 (0.82-1.09) H 04/17/18 07:00 Assessment/Plan CXR: mild PVC ECG done on 04/15/2018 at 16:36 showed Afib with V-pacing Echo 2017: preserved LV size and function. mild-mod RV dilation, borderline RVSF. 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 Mod to severe MR Nuclear Stress 11/2016 (Persantine): fixed apical defect. Preserved LV function. tele: afib, Vs > Acid Correction Hand Assessment/Plan 88 yo male with persistent AF on warfarin, and HTN now admitted with CHF in the setting of recent trip to [place] complicated by food poisoning. acute diast CHF -suspect recent food poisoning overseas triggered decompensated HF, vs ? incr sodium intake while on vacation (pt denies) -Has normal JVP and clear lungs but with pitting LE edema -Elevated BNP (>2000) -Echo in 2017 with normal LV fxn, mod-severe MR, mild PH, dilated RV. these findings are concerning for chronically elevated left sided filling pressures--> PH (? severity underestimated on echo sec to incomplete TR doppler gradient)--> RV dilation. possibly LV diastolic failure vs mitral regurg as the culprit. suspect the former statistically, and based on no MR murmur. the other possibility is severe TR due to persistent afib with RA remodeling (or sec to PM lead), causing RV dilation out of proportion to degree of elevation in left sided/PA pressure. -for repeat echo today. ? outpt echo at [facility] will help tease out severity of TR and left sided pressures--per outpt f/u with dr montes (could consider investigational TV clip if severe TR and recurrent HF hospitalizations) -receiving lasix 40mg IV BID -04/17: wt declining progressively 239 to 234 since here. same lasix. was on lasix 40 qd at home--will likely discharge on [address] montes in followup -will defer consideration of spironolactone add-on for HFpEF to outpt f/u depending on clinical course, lytes trend -no ischemia 2016. no anginal sx's. negative troponins. defer repeat ischemia evaluation--can be considered as outpt if HF clinical course is atypical -anticipate pt will be ready for d/c from CHF standpoing by tomorrow Afib -Well rate controlled on metoprolol, continue same -On coumadin but with elevated INR on admit (? sec to recent GI illness)--held here. resume coumadin when INR approaching 2.0 HTN -Well controlled on Losartan, metoprolol and Amlodipine -same plan
[2018-04-17] MEDS: ACETAMINOPHEN 1000 MG/100 ML VIAL (NON FORMULARY) IVPB PRN ×2 (13:33→21:40)
--- NOTE | 2018-04-17 15:36 | ECHO ---
Name: SVETLANA SOTELO Exam:Adult Echocardiogram Study Date: 04/17/2018 09:10 AM Age: 88 yrs Reason For Study: AVR Height: 72 in Weight: 234 lb BSA: 2.3 m2 MMode/2D Measurements & Calculations IVSd: 0.99 cm Ao root diam: 3.3 cm LVIDd: 5.1 cm LA dimension: 4.4 cm LVIDs: 3.4 cm LVPWd: 1.1 cm EDV(Teich): 124.5 ml LVOT diam: 2.0 cm ESV(Teich): 46.5 ml Doppler Measurements & Calculations MV E max zak: 107.4 cm/sec Ao V2 max: 147.0 cm/sec Ao max P.6 mmHg Ao V2 mean: 100.5 cm/sec Ao mean P.4 mmHg Ao V2 VTI: 27.6 cm NAT(I,D): 2.4 cm2 NAT(V,D): 2.1 cm2 LV V1 max P.6 mmHg SV(LVOT): 65.6 ml LV V1 mean P.9 mmHg LV V1 max: 94.8 cm/sec LV V1 mean: 63.6 cm/sec LV V1 VTI: 20.3 cm TR max zak: 223.8 cm/sec TR max P.0 mmHg Procedure A complete two-dimensional transthoracic echocardiogram was performed (2D, M-mode, Doppler and color flow Doppler). Left Ventricle The left ventricle is normal in size. Left ventricular systolic function is normal. Ejection Fraction = 60- 65%. No regional wall motion abnormalities noted. Right Ventricle The right ventricle is normal size. There is a pacemaker lead in the right ventricle. The right ventr icular systolic function is normal. RV systolic TDI is 10 cm/s. Atria The left atrium is mildly dilated. Right atrial size is normal. Mitral Valve There is mild mitral annular calcification. There is trace mitral regurgitation. Tricuspid Valve The tricuspid valve is normal in structure and function. No tricuspid regurgitation. Right ventricula r systolic pressure is normal. Aortic Valve The aortic valve is normal in structure and function. Trace aortic regurgitation. Pulmonic Valve The pulmonic valve is not well visualized. Great Vessels The aortic root is normal size. Pericardium/Pleura There is no pericardial effusion. Interpretation Summary The left ventricle is normal in size. Left ventricular systolic function is normal. No regional wall motion abnormalities noted. Ejection Fraction = 60-65%. There is a pacemaker lead in the right ventricle. The right ventricular systolic function is normal. The left atrium is mildly dilated. Right atrial size is normal. There is mild mitral annular calcification. There is trace mitral regurgitation. Trace aortic regurgitation. There is no pericardial effusion. Previous study is not available for comparison Romain Alvarez MD 04/17/2018 03:36 PM
--- NOTE | 2018-04-17 16:09 | PN ---
Progress Note, Physician History of Present Illness: stable no issues leg looks good dressing done - Current Medication List Current Medications: Active Medications Acetaminophen (Ofirmev Injection -) 1,000 mg IVPB Q8H PRN PRN Reason: PAIN LEVEL 6-10 Last Admin: 04/17/18 13:33 Dose: 1,000 mg Amlodipine Besylate (Norvasc -) 5 mg PO DAILY@1800 [facility] Last Admin: 04/16/18 17:53 Dose: Not Given Docusate Sodium (Colace -) 100 mg PO TID [facility] Last Admin: 04/17/18 13:02 Dose: 100 mg Finasteride (Proscar -) 5 mg PO DAILY [facility] Last Admin: 04/17/18 09:47 Dose: 5 mg Furosemide (Lasix Injection -) 40 mg IVPUSH BID@0600,1400 [facility] Last Admin: 04/17/18 13:02 Dose: 40 mg Lidocaine (Lidoderm Patch -) 1 patch TP DAILY [facility] Last Admin: 04/17/18 09:47 Dose: 1 patch Losartan Potassium (Cozaar -) 100 mg PO DAILY [facility] Last Admin: 04/17/18 09:47 Dose: 100 mg Metoprolol Succinate (Toprol Xl -) 75 mg PO DAILY@1800 [facility] Last Admin: 04/16/18 17:54 Dose: Not Given Miscellaneous (Lidoderm Patch Removal) 1 each MC DAILY@2200 [facility] Last Admin: 04/16/18 21:40 Dose: 1 each Polyethylene Glycol (Miralax (For Daily Use) -) 17 gm PO DAILY [facility] Last Admin: 04/17/18 09:48 Dose: 17 gm Tamsulosin HCl (Flomax -) 0.4 mg PO DAILY@1800 [facility] Last Admin: 04/16/18 17:47 Dose: 0.4 mg Tramadol HCl (Ultram -) 50 mg PO Q8H PRN PRN Reason: PAIN LEVEL 6-10 - Objective Vital Signs: Vital Signs Temperature 97.3 F L 04/17/18 14:10 Pulse Rate 75 04/17/18 14:10 Respiratory Rate 18 04/17/18 14:10 Blood Pressure 102/48 L 04/17/18 14:10 O2 Sat by Pulse Oximetry (%) 97 04/17/18 14:10 Constitutional: Yes: No Distress, Calm Cardiovascular: Yes: S1, S2 Respiratory: Yes: Regular, CTA Bilaterally Gastrointestinal: Yes: Normal Bowel Sounds, Soft Musculoskeletal: Yes: WNL Extremities: Yes: Other Wound/Incision: Yes: Dressing Dry and Intact Neurological: Yes: Alert, Oriented Psychiatric: Yes: Alert, Oriented Labs: CBC, BMP 04/17/18 07:00 04/17/18 07:00 INR, PTT INR 3.95 (0.82-1.09) H 04/17/18 07:00 Assessment/Plan Problem List - Problems (1) A-fib Code(s): I48.91 - UNSPECIFIED ATRIAL FIBRILLATION (2) Acute exacerbation of CHF (congestive heart failure) Code(s): I50.9 - HEART FAILURE, UNSPECIFIED (3) BPH (benign prostatic hyperplasia) Code(s): N40.0 - BENIGN PROSTATIC HYPERPLASIA WITHOUT LOWER URINRY TRACT SYMP (4) HTN (hypertension) Code(s): I10 - ESSENTIAL (PRIMARY) HYPERTENSION (5) Non-pressure ulcer of left lower extremity Code(s): L97.929 - NON-PRS CHRONIC ULC UNSP PRT OF L LOW LEG W UNSP SEVERITY Assessment/Plan LLE wound s/p scrape Acute CHF exacerbation continue current mgmt local wound care
[2018-04-17] MEDS: metoPROLOL SUCCINATE 25 MG TAB.SR.24H (FP) PO SCH (18:46)
[2018-04-17] MEDS: TAMSULOSIN HCL 0.4 MG CAP PO SCH (18:46)
[2018-04-17] MEDS: amLODIPine BESYLATE 5 MG TABLET (FP) PO SCH (18:46)
[2018-04-18] MEDS ORDERED: LIDOCAINE 5% TOPICAL PATCH TP SCH (04:00)
[2018-04-18] MEDS: FUROSEMIDE 40 MG/4 ML INJECTABLE VIAL IVPUSH SCH ×2 (05:39→13:46)
[2018-04-18] MEDS: DOCUSATE SODIUM 100 MG CAPSULE (FP) PO SCH ×2 (05:39→13:46)
[2018-04-18 08:46] LABS: ALBUMIN 2.7 g/dl (3.4-5.0); ALK PHOS 68 U/L (45-117); ANION GAP 9 MMOL/L (8-16); BILIRUBIN,TOTAL 1.4 mg/dl (0.2-1); BLOOD UREA NITROGEN 17 mg/dl (7-18); CALCIUM 8.1 mg/dl (8.5-10); CHLORIDE 99 mmol/L (98-107); CO2 30 mmol/L (21-32); GLUCOSE,RANDOM 98 mg/dl (74-106); MAGNESIUM 1.9 mg/dL (1.8-2.4); POTASSIUM 3.6 mmol/L (3.5-5.1); SGOT/AST 26 U/L (15-37); SGPT/ALT 21 U/L (13-61); SODIUM 138 mmol/L (136-145); TOT PROT 5.5 g/dl (6.4-8.2)
[2018-04-18 08:56] LABS: BASO % 0.6 % (0-2.0); EOS % 1.7 % (0-4.5); HEMATOCRIT 32.3 % (35.4-49); HEMOGLOBIN 10.9 GM/dl (11.7-16.9); MCH 32.2 pg (25.7-33.7); MCHC 33.6 g/dl (32.0-35.9); MEAN CELL VOLUME 95.9 fl (80-96); MEAN PLT VOLUME 7.9 fl (7.5-11.1); MONO % 11.1 % (3.8-10.2); NEUT % 73.6 % (42.8-82.8); PLATELET COUNT 395 K/MM3 (134-434); RBC 3.37 M/mm3 (4.00-5.60); WHITE BLOOD COUNT 6.5 K/mm3 (4.0-10.8)
[2018-04-18 09:06] LABS: INR 3.22 (0.82-1.09); PROTHROMBIN TIME (PATIENT) 35.2 SEC (10.2-13.0)
[2018-04-18] MEDS: FINASTERIDE 5 MG TABLET (FP) PO SCH (09:27)
[2018-04-18] MEDS: LOSARTAN POTASSIUM 50 MG TABLET (FP) PO SCH (09:27)
[2018-04-18] MEDS: POLYETHYLENE GLYCOL 3350 119 GM BTL PO SCH (09:28)
--- NOTE | 2018-04-18 12:00 | DS ---
Physical Exam: SUBJECTIVE: Patient seen and examined OBJECTIVE: Vital Signs Period Temp Pulse Resp BP Sys/Meyer Pulse Ox Last 24 Hr 97.3 F-98.6 F 66-90 17-19 102-142/44-61 96-98 PHYSICAL EXAM GENERAL: The patient is awake, alert, and fully oriented, in no acute distress. LUNGS: Breath sounds equal, clear to auscultation bilaterally, no wheezes, no crackles, no accessory muscle use. HEART: Regular rate and rhythm, S1, S2 ABDOMEN: Soft, nontender, nondistended, normoactive bowel sounds LOWER EXTREMITIES: 2+ pulses, warm, well-perfused, no edema. Avulsion injury to LLE. Necrotic skin flap. No erythema, fluctuance, or warmth. NEUROLOGICAL: Cranial nerves II through XII grossly intact. Normal speech, gait not observed. PSYCH: Normal mood, normal affect. SKIN: Warm, dry, normal turgor LABS Laboratory Results - last 24 hr 04/18/18 04/18/18 04/18/18 07:00 07:00 07:00 WBC 6.5 RBC 3.37 L Hgb 10.9 L Hct 32.3 L MCV 95.9 MCH 32.2 MCHC 33.6 RDW 13.0 Plt Count 395 MPV 7.9 Absolute Neuts (auto) 4.9 Neutrophils % 73.6 Lymphocytes % 13.0 Monocytes % 11.1 H Eosinophils % 1.7 Basophils % 0.6 PT with INR 35.2 H INR 3.22 H Sodium 138 Potassium 3.6 Chloride 99 Carbon Dioxide 30 Anion Gap 9 BUN 17 Creatinine 1.0 Creat Clearance w eGFR > 60 Random Glucose 98 Calcium 8.1 L Magnesium 1.9 Total Bilirubin 1.4 H AST 26 ALT 21 Alkaline Phosphatase 68 Total Protein 5.5 L Albumin 2.7 L HOSPITAL COURSE: Date of Admission:04/16/18 Date of Discharge: 04/18/18 Pre hospital course This is a 88 y/o man with a past medical history of CHF, Afib (on Coumadin, pacemaker in place), HTN, BPH. Who presents to the ED with left leg pain with a non healing lesion for the past week. Patient states that he cut his leg on a plant pot while in [place] and bandaged it. He reports increased SOB for the past week and slightly worsening bilateral leg swelling. He recently returned from [place] one week ago, and with the worsening bilateral leg swelling and was told by his PCP to increase his Lasix by one dose so he has been taking 60 mg instead of 40 mg. Patient reports being UTD with tetanus. Patient denies fevers , chills, dizziness, ROJAS, CP, palpitations, AP, N/V/D, dysuria. Patient denies parasthesias to LLE, increased erythema or tracking. 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 Admitted for CHF exacerbation, LLE wound, and left hip pain. 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 Denney consulted, ordered new xray series, no acute findings --walked 240 feet today with PT --treated with IV Tylenol PRN --discharge with lidocaine patches Atrial fibrillation --INR 6.38 on admission-->3.22 --continue to hold warfarin; check INR in 24-48 hours after discharge and resume coumadin when INR between 2-3 --rate controlled on Toprol XL Hypertension --continued Toprol XL, losartan, amlodipine BPH --continued tamsulosin, finasteride PPM --Biotronik --Eluna 8 SR-T ProMRI 02/04/15 [id number] --Setrox S 60 [id number] 02/04/15 Minutes to complete discharge: 35 Discharge Summary Reason For Visit: ACUTE CONGESTIVE HEART FAILURE Current Active Problems A-fib (Acute) Acute congestive heart failure (Acute) Acute exacerbation of CHF (congestive heart failure) (Acute) BPH (benign prostatic hyperplasia) (Acute) HTN (hypertension) (Acute) 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 (Acute) Supratherapeutic international normalized ratio (INR) (Acute) Condition: Improved - Instructions Referrals: Bill Wilson MD [Staff Physician] - Disposition: HOME - Home Medications Comprehensive Discharge Medication List: Ambulatory Orders Furosemide [Lasix] 40 mg PO DAILY 04/15/16 Losartan Potassium [Cozaar] 100 mg PO DAILY 04/15/16 Metoprolol Succinate [Toprol Xl] 75 mg PO DAILY 04/15/16 Tamsulosin HCl [Flomax] 0.4 mg PO DAILY 04/15/16 Warfarin Sodium 2 mg PO ASDIR 04/15/16 Warfarin Sodium 3 mg PO ASDIR 04/15/16 Amlodipine Besylate 5 mg PO HS 04/15/18 Finasteride [Proscar] 5 mg PO DAILY 04/15/18 Nitrofurantoin Macrocrystal [Nitrofurantoin] 25 mg PO ASDIR 04/15/18 This patient is new to me today: No Emergency Visit: Yes ED Registration Date: 04/16/18 Care time: The patient presented to the Emergency Department on the above date and was hospitalized for further evaluation of their emergent condition. Critical Care patient: No - Discharge Referral Referred to [facility] Med P.C.: No
--- NOTE | 2018-04-18 14:00 | EKG ---
Test Reason : Blood Pressure : / mmHG Vent. Rate : 076 BPM Atrial Rate : 072 BPM P-R Int : 000 ms QRS Dur : 170 ms QT Int : 446 ms P-R-T Axes : 000 -85 081 degrees QTc Int : 501 ms Ventricular-paced rhythm WITH OCCASIONAL PREMATURE VENTRICULAR COMPLEXES ABNORMAL ECG WHEN COMPARED WITH ECG OF 02-JAN-2008 14:15, ELECTRONIC VENTRICULAR PACEMAKER HAS REPLACED SINUS RHYTHM VENT. RATE HAS INCREASED BY 25 BPM Confirmed by MD Willis, Oel ([id number]) on 04/18/2018 2:00:25 PM Referred By: RENÉ CRUZ Confirmed By:Ole Pedro MD
--- NOTE | 2018-04-18 14:45 | PN ---
Progress Note, Physician History of Present Illness: stable doing well wound looked at healing well - Current Medication List Current Medications: Active Medications Acetaminophen (Ofirmev Injection -) 1,000 mg IVPB Q8H PRN PRN Reason: PAIN LEVEL 6-10 Last Admin: 04/17/18 21:40 Dose: 1,000 mg Amlodipine Besylate (Norvasc -) 5 mg PO DAILY@1800 [facility] Last Admin: 04/17/18 18:46 Dose: Not Given Docusate Sodium (Colace -) 100 mg PO TID [facility] Last Admin: 04/18/18 13:46 Dose: 100 mg Finasteride (Proscar -) 5 mg PO DAILY [facility] Last Admin: 04/18/18 09:27 Dose: 5 mg Furosemide (Lasix Injection -) 40 mg IVPUSH BID@0600,1400 [facility] Last Admin: 04/18/18 13:46 Dose: 40 mg Lidocaine (Lidoderm Patch -) 1 patch TP DAILY@0400 [facility] Last Admin: 04/18/18 13:38 Dose: Not Given Losartan Potassium (Cozaar -) 100 mg PO DAILY [facility] Last Admin: 04/18/18 09:27 Dose: 100 mg Metoprolol Succinate (Toprol Xl -) 75 mg PO DAILY@1800 [facility] Last Admin: 04/17/18 18:46 Dose: Not Given Miscellaneous (Lidoderm Patch Removal) 1 each MC DAILY@1600 [facility] Polyethylene Glycol (Miralax (For Daily Use) -) 17 gm PO DAILY [facility] Last Admin: 04/18/18 09:28 Dose: 17 gm Tamsulosin HCl (Flomax -) 0.4 mg PO DAILY@1800 [facility] Last Admin: 04/17/18 18:46 Dose: 0.4 mg Tramadol HCl (Ultram -) 50 mg PO Q8H PRN PRN Reason: PAIN LEVEL 6-10 - Objective Vital Signs: Vital Signs Temperature 98.3 F 04/18/18 10:00 Pulse Rate 90 04/18/18 10:00 Respiratory Rate 19 04/18/18 10:00 Blood Pressure 132/57 L 04/18/18 10:00 O2 Sat by Pulse Oximetry (%) 96 04/18/18 10:00 Constitutional: Yes: No Distress, Calm Cardiovascular: Yes: Regular Rate and Rhythm Respiratory: Yes: Regular, CTA Bilaterally Gastrointestinal: Yes: Normal Bowel Sounds, Soft Musculoskeletal: Yes: WNL Extremities: Yes: Other (scab forming on the wound) Neurological: Yes: Alert, Oriented Labs: CBC, BMP 04/18/18 07:00 04/18/18 07:00 INR, PTT INR 3.22 (0.82-1.09) H 04/18/18 07:00 Assessment/Plan Problem List - Problems (1) A-fib Code(s): I48.91 - UNSPECIFIED ATRIAL FIBRILLATION (2) Acute exacerbation of CHF (congestive heart failure) Code(s): I50.9 - HEART FAILURE, UNSPECIFIED (3) BPH (benign prostatic hyperplasia) Code(s): N40.0 - BENIGN PROSTATIC HYPERPLASIA WITHOUT LOWER URINRY TRACT SYMP (4) HTN (hypertension) Code(s): I10 - ESSENTIAL (PRIMARY) HYPERTENSION (5) Non-pressure ulcer of left lower extremity Code(s): L97.929 - NON-PRS CHRONIC ULC UNSP PRT OF L LOW LEG W UNSP SEVERITY Assessment/Plan LLE wound s/p scrape Acute CHF exacerbation continue current mgmt local wound care
[2018-04-18 14:58] VITALS: BP 107/62; PULSE 84; TEMP 99
[2018-04-18] MEDS ORDERED: ACETAMINOPHEN 325 MG TABLET (FP) PO ONE (15:02)
[2018-04-18] MEDS ORDERED: LIDOCAINE PATCH REMOVAL MC SCH (16:00)
--- NOTE | 2018-04-18 16:09 | CONSULT ---
Consult - text type - Consultation Consultation Note: FULL CONSULT DICTATED IMP: L GROIN STRAIN PLAN: REST, ANALGESICS, OUTPATIENT PT. F/U WITH HIS ORTHO SURGEON UPON DC
--- NOTE | 2018-04-18 16:43 | CONS ---
DATE OF CONSULTATION: 04/18/2018 ORTHOPEDIC CONSULTATION LOCATION: [facility] The patient is an 88-year-old male status post bilateral total hip replacements done elsewhere who has recently come back from a long vacation in [place] where he was walking a great deal each day. Upon coming home, he felt that he has pain in his left hip. No real fall or trauma, a questionable misstep on a few stairs, and had increased pain in his left hip. No recent history of fever or chills. Denies any swelling, redness. PHYSICAL EXAMINATION: He has a surgical scar on his bilateral hips. Equal limb lengths. Passively he has excellent range of motion in both the hips, knees, ankles, and toes. No swelling, ecchymosis, or erythema. No point tenderness at any location. Does have some pain with flexion and extension of the left hip, and he has some pain with actively trying to flex his hip. X-RAYS: Taken at [facility] revealed a well-seated bilateral total hip replacements with no acute fracture or dislocation. IMPRESSION: Well-seated bilateral hip replacements now with a left groin strain. PLAN: He cannot take any anti-inflammatories since he is on Coumadin. I recommend p.o. Tylenol, stretching exercises, physical therapy on an outpatient, rest, and follow up with his operating surgeon upon discharge. Patient is being diuresed as he has CHF and is being placed on Lasix. When he can be discharged and sent home. IVORY CASEY M.D. [id number]
== END 2018-04-18 16:00 | disposition home or self-care (01) | DRG 293 ==
LOC: FER 14:49 → FM/S 16:01 → OBSVTOIN 04-16 14:39
PROVIDERS: ATTEND Nurse Practitioner Acute Care
DX: I11.0 Hypertensive heart disease with heart failure (principal); I50.33 Acute on chronic diastolic (congestive) heart failure; I48.91 Unspecified atrial fibrillation; N40.0 Benign prostatic hyperplasia without lower urinary tract symptoms; R79.1 Abnormal coagulation profile; M25.552 Pain in left hip; S81.802A Unspecified open wound, left lower leg, initial encounter; Z95.0 Presence of cardiac pacemaker; Z79.01 Long term (current) use of anticoagulants
CPT/HCPCS: 36415; 71045-TC-FY; 72170-TC-FY; 73502-TC-LT-FY; 73552-TC-LT-FY; 80048; 80053; 81003; 81015; 82550; 83735; 83880; 84100; 84484; 85025; 85610; 93005; 93306-TC; 93971-TC; 97116-GP; 99284-25; G0378; J0131